=== PATIENT | female | born 1970 | race Caucasian/White ===

== ENCOUNTER 2016-09-05 16:18 | Emergency (ER) | payer OTHER ==
[~2016-09-05] VITALS: Ht 172.7 cm; Wt 86.0 kg
[2016-09-05 16:39] VITALS: BP 135/90; PULSE 106; RESP 18; TEMP 98.1; O2SAT 94
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
[2016-09-05] MEDS ORDERED: LAMI250T2 PO (17:06)
[2016-09-05] MEDS ORDERED: TRAZ150T75 PO (17:06)
[2016-09-05] MEDS ORDERED: MIRA0.25 PO (17:06)
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
[2016-09-05] MEDS ORDERED: ORPH100T99 PO (18:02)
[2016-09-05] MEDS ORDERED: IBUP-232 PO (18:02)
[2016-09-05] MEDS ORDERED: TRAM50TA PO (18:02)
== END 2016-09-05 18:20 | disposition home or self-care (01) ==
LOC: PHEFT 16:18
DX: S16.1XXA Strain of muscle, fascia and tendon at neck level, initial encounter (principal); V43.52XA Car driver injured in collision with other type car in traffic accident, initial encounter; Y93.89 Activity, other specified; Y92.410 Unspecified street and highway as the place of occurrence of the external cause; R51 Headache
CPT/HCPCS: 70450; 72125